=== PATIENT | female | born 1965 | race Caucasian/White ===

== ENCOUNTER → 2018-02-07 | Outpatient (CLI) | payer BC | LOC: BRMIMAGING 16:56 | PROVIDERS: ATTEND Internal Medicine | DX: M18.0 Bilateral primary osteoarthritis of first carpometacarpal joints (principal); M25.761 Osteophyte, right knee; M25.762 Osteophyte, left knee; M25.871 Other specified joint disorders, right ankle and foot; M25.872 Other specified joint disorders, left ankle and foot | CPT/HCPCS: 73130-PO; 73562-PO; 73610-PO ==

== ENCOUNTER → 2018-06-15 | Outpatient (CLI) | payer BC | LOC: FCPNEURO 21:30 | PROVIDERS: ATTEND Student in an Organized Health Care Education/Training Program | DX: G47.33 Obstructive sleep apnea (adult) (pediatric) (principal); G47.34 Idiopathic sleep related nonobstructive alveolar hypoventilation ==